=== PATIENT | female | born 1995 | race Caucasian/White ===

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

== ENCOUNTER 2017-08-22 19:04 | Emergency (ER) | END 2017-08-22 23:14 | disposition home or self-care (01) ==

== ENCOUNTER 2018-02-05 09:55 | Emergency (ER) | END 2018-02-05 11:02 | disposition home or self-care (01) ==

== ENCOUNTER 2018-06-01 12:46 | Emergency (ER) | payer SELFPAY ==
[~2018-06-01] VITALS: Ht 170.2 cm; Wt 104.9 kg
[~2018-06-01 12:46] MED LIST changes: +ACET500C5 PO; +DICY10CA40 PO; +ONDA4TAB14 PO
[2018-06-01 12:51] VITALS: Ht 170.2 cm; Wt 104.9 kg
[2018-06-02] MEDS ORDERED: TYL500 PO (17:06)
[2018-06-02] MEDS ORDERED: METH750T93 PO (17:06)
[2018-06-02] MEDS ORDERED: IBUP-1542 PO (17:06)
== END 2018-06-01 12:51 | disposition left against medical advice (07) ==
LOC: FTE 12:46
DX: Z53.21 Procedure and treatment not carried out due to patient leaving prior to being seen by health care provider (principal)

== ENCOUNTER 2018-06-02 13:43 | Emergency (ER) | payer OTHER ==
[~2018-06-02] VITALS: Ht 170.2 cm; Wt 103.6 kg
[2018-06-02 13:51] VITALS: BP 144/94; PULSE 100; RESP 18; Ht 170.2 cm; Wt 103.6 kg
[2018-06-02] MEDS ORDERED: KETOROLAC 30 MG INJ IM STA (15:21)
[2018-06-02] MEDS ORDERED: TYL500 PO (17:06)
[2018-06-02] MEDS ORDERED: METH750T93 PO (17:06)
[2018-06-02] MEDS ORDERED: IBUP-1542 PO (17:06)
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
== END 2018-06-02 17:19 | disposition home or self-care (01) ==
LOC: FTE 13:43
DX: M25.561 Pain in right knee (principal)
CPT/HCPCS: 73562; 81025; 96372; J1885; Z7502